=== PATIENT | female | born 1990 | race African-American/Black ===

== ENCOUNTER 2021-10-07 15:53 | Emergency (ER) | payer SELFPAY ==
[2021-10-07 16:09] VITALS: BP 138/82; PULSE 82; RESP 18; TEMP 36.1; O2SAT 96; BMI 37.7
--- NOTE | 2021-10-07 16:27 | CRLHL7_ITS ---
For Patients: As a result of the Cures Act, medical imaging exams and procedure reports are released immediately into your electronic medical record. You may view this report before your referring provider. If you have questions, please contact your health care provider. INDICATION: Left-sided chest pain. TECHNIQUE: Chest 1 views. COMPARISON: None. FINDINGS: Lungs: Clear lungs. No consolidation. Pleura: No pleural effusion or pneumothorax. Heart and Mediastinum: The cardiomediastinal silhouette is normal. The vessels are unremarkable. Bones: Unremarkable. IMPRESSION: No acute cardiopulmonary disease. Dictated by Ketan Bond MD @ 10/07/2021 5:14:17 PM (Electronically Signed)
--- NOTE | 2021-10-07 16:29 | ED.GENADULT ---
HPI - General Adult General Time Seen by Provider: 16:28 Date Seen: 10/07/21 Chief complaint: Shortness of Breath/Dyspnea Stated complaint: Trouble Breathing Heart Pain Time Seen by Provider: 10/07/21 15:55 Source: patient Mode of arrival: ambulatory Limitations: no limitations History of Present Illness HPI narrative: Patient is a 31-year-old female who reports last couple of days she has had some left chest wall tenderness under her breast worse when she twists or moves a certain way. No history of bleeding or clotting problems, no anterior chest pain, no diaphoresis, fever no cough. Patient denies leg swelling or edema. Denies abdominal pain, denies flank pain or back pain, denies head pain or neck pain patient has not had a similar symptom in the past. The patient reports she has been getting estrogen per her prior primary doctor to support her estrogen level to prevent osteoporosis. She reported the nurses she is in significant pain but she is watching TV and does not appear in any distress this time, noncyanotic, no increased respiratory effort Related Data Allergies Allergy/AdvReac Type Severity Reaction Status Date / Time No Known Drug Allergies Allergy Verified 10/07/21 16:12 Review of Systems Status of ROS: Reports: 6 or more systems reviewed and unremarkable except as noted in History and below PFSH PFS Social History Smoking Status: Never smoker Do you use any of these nicotine containing products: None Second hand tobacco smoke exposure: No How often do you have a drink containing alcohol: monthly or less How many standard drinks containing alcohol do you have on a typical day: 1 or 2 How often do you have six or more drinks on one occasion: Never AUDIT-C Alcohol total score: 1 Non-prescribed substance use: denies use Exam Narrative: Exam Narrative: Objective: The patient is a pleasant 31-year-old female HEENT is unremarkable no facial asymmetry Neck is supple Chest is clear no rales or wheezing Heart rate and rhythm regular no murmur Abdomen benign soft ext Extremities without edema Good peripheral perfusion Neurologic nonfocal Const: Vital Signs, click to edit/add: Vital Signs - 24 hr 10/07/21 18:27 Pulse Rate [Right Pulse Oximeter] 66 Blood Pressure [Le ft Upper Arm] 140/83 H Pulse Oximetry 100 Oxygen Delivery Me thod Room Air Course Vital Signs Vital signs: Initial Vital Signs Temperature 97.0 F L 10/07/21 16:09 Temperature Source Temporal Artery Scan 10/07/21 16:09 Pulse Rate 82 10/07/21 16:09 Respiratory Rate 18 10/07/21 16:09 Blood Pressure 138/82 10/07/21 16:09 Blood Pressure Mean 100 10/07/21 16:09 Blood Pressure Position Sitting 10/07/21 16:09 Pulse Oximetry 96 10/07/21 16:09 Oxygen Delivery Method 10/07/21 16:09 Vital Signs Temperature 97.0 F L 10/07/21 16:09 Pulse Rate 82 10/07/21 16:09 Respiratory Rate 18 10/07/21 16:09 Blood Pressure 138/82 10/07/21 16:09 Pulse Oximetry 96 10/07/21 16:09 Oxygen Delivery Method 10/07/21 16:09 Temperature 97.0 F L 10/07/21 16:09 Pulse Rate 66 10/07/21 18:27 Respiratory Rate 18 10/07/21 16:09 Blood Pressure 140/83 H 10/07/21 18:27 Pulse Oximetry 100 10/07/21 18:27 Oxygen Delivery Method 10/07/21 18:27 Medical Decision Making MDM Narrative Medical decision making narrative: Patient has had some chest wall type pain in the left lateral chest, it is worse with palpation, and worse with movement or deep breathing. No history of blood clots or bleeding disorders. I think checking labs including a D-dimer would be appropriate as well as a chest x-ray, will get an EKG as well. If these are negative then I think perhaps even some steroid medicine for brief. Would be helpful for its anti-inflammatory effect tell for chest wall discomfort. Addendum: The patient has an EKG that by my read shows normal sinus rhythm normal EKG, laboratory studies look reassuring in the form of negative D-dimer negative qualitative serum HCG negative chest x-ray by my read patient's white count hemoglobin are normal ER profile is unremarkable CRP is less than 0.6. At this point I suspect areas has a chest wall discomfort and I would recommend Advil or Aleve observation, light activity and follow up with primary care within the next 2-3 days. Lab Data Labs: Lab Results 10/07/21 10/07/21 10/07/21 Range/Units 17:21 17:21 17:21 WBC 10.01 (4.50-11.00) K/uL RBC 4.01 (4.00-5.20) m/uL Hgb 11.2 L (12.0-16.0) gm/dL Hct 34.6 (33.0-51.0) % MCV 86 (80-100) fL MCH 28 (26-34) pg MCHC 32 (32-36) gm/dL RDW Coeff of Benjamin 13.2 (11.5-15.5) % Plt Count 418 (140-440) K/uL Neut % (Auto) 57.7 (42.0-72.0) % Lymph % (Auto) 30.5 (20-44) % [place] % (Auto) 6.4 (0.0-11.0) % Eos % (Auto) 4.8 (0.0-7.0) % Baso % (Auto) 0.5 (0.0-3.0) % Neut # (Auto) 5.78 (1.7-7.0) K/uL Lymph # (Auto) 3.05 H (0.90-2.90) K/uL [place] # (Auto) 0.60 (0.00-0.90) K/UL Eos # (Auto) 0.48 (0.00-0.50) K/uL Baso # (Auto) 0.05 (0.00-0.30) K/uL Abs Immat Gran (auto) 0.01 (0.00-0.30) K/uL D-Dimer Quant (PE/DVT) 0.29 (0.00-0.50) ug/ml Sodium 138 (135-149) mmol/L Potassium 3.9 (3.6-5.1) mmol/L Chloride 103 (96-114) mmol/L Carbon Dioxide 27 (20-32) mmol/L BUN 15 (5-24) mg/dL Creatinine 0.7 (0.5-1.5) mg/dL Estimated Creat Clear 132.54 Estimated GFR 120 ml/min Glucose 99 (60-115) mg/dL Calcium 8.8 (8.4-10.6) mg/dL Total Bilirubin < 0.1 L (0.1-1.5) mg/dL Direct Bilirubin 0.0 (0.0-0.5) mg/dL AST 27 (12-35) U/L ALT 13 (4-35) U/L Alkaline Phosphatase 135 (40-150) U/L C-Reactive Protein 0.6 (0.5-1.0) mg/dL Total Protein 8.0 (6.0-8.3) g/dL Albumin 4.2 (3.3-5.0) g/dL HCG, Qual (Negative) 10/07/21 10/07/21 Range/Units 17:21 17:21 WBC (4.50-11.00) K/uL RBC (4.00-5.20) m/uL Hgb (12.0-16.0) gm/dL Hct (33.0-51.0) % MCV (80-100) fL MCH (26-34) pg MCHC (32-36) gm/dL RDW Coeff of Benjamin (11.5-15.5) % Plt Count (140-440) K/uL Neut % (Auto) (42.0-72.0) % Lymph % (Auto) (20-44) % [place] % (Auto) (0.0-11.0) % Eos % (Auto) (0.0-7.0) % Baso % (Auto) (0.0-3.0) % Neut # (Auto) (1.7-7.0) K/uL Lymph # (Auto) (0.90-2.90) K/uL [place] # (Auto) (0.00-0.90) K/UL Eos # (Auto) (0.00-0.50) K/uL Baso # (Auto) (0.00-0.30) K/uL Abs Immat Gran (auto) (0.00-0.30) K/uL D-Dimer Quant (PE/DVT) (0.00-0.50) ug/ml Sodium (135-149) mmol/L Potassium (3.6-5.1) mmol/L Chloride (96-114) mmol/L Carbon Dioxide (20-32) mmol/L BUN (5-24) mg/dL Creatinine (0.5-1.5) mg/dL Estimated Creat Clear Estimated GFR ml/min Glucose (60-115) mg/dL Calcium (8.4-10.6) mg/dL Total Bilirubin Cancelled (0.1-1.5) mg/dL Direct Bilirubin Cancelled (0.0-0.5) mg/dL AST Cancelled (12-35) U/L ALT Cancelled (4-35) U/L Alkaline Phosphatase Cancelled (40-150) U/L C-Reactive Protein (0.5-1.0) mg/dL Total Protein Cancelled (6.0-8.3) g/dL Albumin Cancelled (3.3-5.0) g/dL HCG, Qual Negative (Negative) Discharge Plan Discharge Clinical Impression: Acute chest wall pain Patient Disposition: Home, Self-Care Condition: Stable Additional Instructions: Rest, light activity, Advil or Aleve as needed, Tylenol as needed, update primary care doctor next 2-3 days, certainly sooner change concerns worsening return to ED. Activity Level: Light activity Discharge Diet: Regular Stand Alone Forms: [employer] [facility] Info Instructions
[2021-10-07 17:28] LABS: Basophils Absolute Auto 0.05 K/uL (0.00-0.30); Basophils Percent Auto 0.5 % (0.0-3.0); Eosinophils Absolute Auto 0.48 K/uL (0.00-0.50); Eosinophils Percent Auto 4.8 % (0.0-7.0); Hematocrit 34.6 % (33.0-51.0); Hemoglobin* 11.2 gm/dL (12.0-16.0); Immature Granulocytes Abs Auto 0.01 K/uL (0.00-0.30); Lymphocytes Absolute Auto 3.05 K/uL (0.90-2.90); Lymphocytes Percent Auto 30.5 % (20-44); Mean Corpuscular HGB Conc 32 gm/dL (32-36); Mean Corpuscular Hemoglobin 28 pg (26-34); Mean Corpuscular Volume 86 fL (80-100); Monocytes Percent Auto 6.4 % (0.0-11.0); Neutrophils Absolute Auto 5.78 K/uL (1.7-7.0); Neutrophils Percent Auto 57.7 % (42.0-72.0); Platelet Count* 418 K/uL (140-440); RDW Coefficient of Variation % 13.2 % (11.5-15.5); Red Blood Count 4.01 m/uL (4.00-5.20); White Blood Count* 10.01 K/uL (4.50-11.00)
[2021-10-07 17:44] LABS: Slide Review Reflex No
[2021-10-07 17:45] LABS: Albumin* 4.2 g/dL (3.3-5.0); Chloride* 103 mmol/L (96-114); Sodium* 138 mmol/L (135-149)
[2021-10-07 17:46] LABS: Potassium* 3.9 mmol/L (3.6-5.1)
[2021-10-07 17:48] LABS: Alkaline Phosphatase* 135 U/L (40-150); Aspartate Amino Transferase* 27 U/L (12-35); Blood Urea Nitrogen* 15 mg/dL (5-24); Carbon Dioxide* 27 mmol/L (20-32); Creatinine* 0.7 mg/dL (0.5-1.5); Est. Creatinine Clearance* 132.54; Estimated Glomerular Filt Rate 120 ml/min
[2021-10-07 17:49] LABS: Alanine Aminotransferase* 13 U/L (4-35); Calcium* 8.8 mg/dL (8.4-10.6); Glucose* 99 mg/dL (60-115)
[2021-10-07 17:51] LABS: C Reactive Protein* 0.6 mg/dL (0.5-1.0)
[2021-10-07 17:57] LABS: Bilirubin Total* < 0.1 mg/dL (0.1-1.5)
[2021-10-07 18:10] LABS: D Dimer Quantitative* 0.29 ug/ml (0.00-0.50)
[2021-10-07 18:27] VITALS: BP 140/83; PULSE 66; O2SAT 100
[2021-10-07 18:31] LABS: HCG Qualitative Serum* Negative (Negative)
== END 2021-10-07 18:49 | disposition home or self-care (01) ==
PROVIDERS: Emergency Provider Family Medicine
DX: R07.89 Other chest pain (principal)
CPT/HCPCS: 36415; 71045; 80048; 80076; 84703; 85025; 85379; 86140; 93005; 99284; 99285

== ENCOUNTER 2023-05-26 16:57 | Outpatient (CLI) | payer OTHER, SELFPAY | END 2023-05-26 16:58 | disposition home or self-care (01) | LOC: AMB 06-02 05:17 | PROVIDERS: Visit Provider Emergency Medicine | DX: R07.89 Other chest pain (principal) | CPT/HCPCS: A0425; A0429 ==

== ENCOUNTER 2023-05-26 17:22 | Emergency (ER) | payer OTHER, SELFPAY ==
[2023-05-26 17:25] VITALS: BP 130/83; PULSE 92; RESP 18; O2SAT 98; BMI 34.9
--- NOTE | 2023-05-26 17:37 | ED_ITS ---
HPI - General Adult General Date Seen: 05/26/23 Chief complaint: Anxiety Stated complaint: Anxiety Time Seen by Provider: 05/26/23 17:31 History of Present Illness HPI narrative: 32-year-old female with past medical history of anxiety, who presented to the ER today. Triage note from the nurses is that she apparently had not eaten anything today. She [place] the movie theater. She smokes marijuana. She felt her heart racing. She was apparently brought in by to the ER. When I went to ER stable room to to evaluate this patient she had already left. Her nurse says that she had decided she did want to be seen in the ER and had signed a refusal. I found an empty gown, pulse oximeter on the floor, and unhooked cardiac leads in her bed. We did look around the emergency department and she was not found. This patient signed refusal of care to the nursing staff and left the emergency department before she was seen by a medical provider. Nurses felt she was stable and had medical decision-making capacity. She was witnessed by security to leave the hospital and get into a car to drive away. Related Data Home Medications Medication Instructions Recorded Confirmed atenolol 05/26/23 Allergies Allergy/AdvReac Type Severity Reaction Status Date / Time No Known Drug Allergies Allergy Verified 10/07/21 16:12 [facility] Social History Smoking Status: Never smoker Do you use any of these nicotine containing products: None Second hand tobacco smoke exposure: No How often do you have a drink containing alcohol: monthly or less How many standard drinks containing alcohol do you have on a typical day: 1 or 2 How often do you have six or more drinks on one occasion: Never AUDIT-C Alcohol total score: 1 Non-prescribed substance use: denies use Exam Const: Vital Signs, click to edit/add: Vital Signs - 24 hr 05/26/23 17:25 Pulse Rate [Pulse Oximeter] 92 Respiratory Rate 18 Blood Pressure [Ri ght Upper Arm] 130/83 Pulse Oximetry 98 Oxygen Delivery Me thod Room Air Course Vital Signs Vital signs: Initial Vital Signs Temperature Source Temporal Artery Scan 05/26/23 17:25 Pulse Rate 92 05/26/23 17:25 Pulse Rhythm Regular 05/26/23 17:25 Respiratory Rate 18 05/26/23 17:25 Blood Pressure 130/83 05/26/23 17:25 Blood Pressure Mean 98 05/26/23 17:25 Blood Pressure Position Sitting 05/26/23 17:25 Pulse Oximetry 98 05/26/23 17:25 Oxygen Delivery Method Room Air 05/26/23 17:25 Vital Signs Pulse Rate 92 05/26/23 17:25 Respiratory Rate 18 05/26/23 17:25 Blood Pressure 130/83 05/26/23 17:25 Pulse Oximetry 98 05/26/23 17:25 Oxygen Delivery Method Room Air 05/26/23 17:25 Pulse Rate 92 05/26/23 17:25 Respiratory Rate 18 05/26/23 17:25 Blood Pressure 130/83 05/26/23 17:25 Pulse Oximetry 98 05/26/23 17:25 Oxygen Delivery Method Room Air 05/26/23 17:25 Discharge Plan Discharge Clinical Impression: Patient left without being seen Prescriptions: No Action atenolol Follow Up/Referrals: Provider,Not a Local [Primary Care Provider] -
== END 2023-05-26 18:00 | disposition left against medical advice (07) ==
LOC: ED 17:54
PROVIDERS: Emergency Provider Emergency Medicine
DX: Z53.21 Procedure and treatment not carried out due to patient leaving prior to being seen by health care provider (principal)
CPT/HCPCS: 99281